=== PATIENT | female | born 1955 | race Caucasian/White ===

== ENCOUNTER 2017-09-25 11:10 | Emergency (ER) | payer SELFPAY ==
[~2017-09-25] VITALS: Ht 154.9 cm; Wt 76.6 kg
[2017-09-25 11:15] VITALS: Ht 154.9 cm; Wt 76.6 kg
[2017-09-25] MEDS ORDERED: METHYLPREDNISOLONE 125 MG INJ IV ONE (13:30)
[2017-09-25] MEDS ORDERED: SOD CHLORIDE 0.9% 1,000 ML IV ONE (13:30)
[2017-09-25] MEDS ORDERED: DIPHENHYDRAMINE 50 MG INJ IV ONE (13:30)
[2017-09-25] MEDS ORDERED: FAMOTIDINE 20 MG INJ IV ONE (13:30)
[2017-09-25] MEDS ORDERED: MED4DP PO (14:17)
[2017-09-25] MEDS ORDERED: BEN25 PO (14:17)
--- NOTE | 2017-09-25 14:40 | ERD ---
ER Documentation Chief Complaint Chief Complaint RASH AND ITCHING AROUND EYES X 4 DAYS HPI This is a 61-year-old female presents to the ER with itchy eyes and redness around her eyes after she got eyeliner tattooed on them 4 days ago. Patient denies any eye discharge, she denies any eye pain. She denies any vision loss or vision changes. Patient denies any fevers or chills. Patient denies any tongue swelling, lip swelling, dysphasia, difficulty in breathing. she does not Have any rashes anywhere else in her body. ROS 12 point review of systems was done, all negative except per HPI. Medications Home Meds Active Scripts Diphenhydramine Hcl* (Benadryl*) 25 Mg Cap, 25 MG PO Q6, #30 CAP Prov:EZEKIEL TRUJILLO Jovana 09/25/17 Methylprednisolone* (Medrol* DOSE PACK) 4 Mg/Dose-Pack Tab.ds.pk, 4 MG PO . DIRECTED for 6 Days, PACKET Prov:EZEKIEL TRUJILLO Jovana 09/25/17 PMhx/Soc Medical and Surgical Hx: pt denies Medical Hx, pt denies Surgical Hx Hx Alcohol Use: No Hx Substance Use: No Hx Tobacco Use: No Physical Exam Vitals Vital Signs Date Time Temp Pulse Resp B/P Pulse Ox O2 Delivery O2 Flow Rate FiO2 09/25/17 11:15 98.1 72 18 159/70 100 Physical Exam GENERAL: The patient is well developed and appropriate for usual state of health , in no apparent distress. HEENT: Atraumatic. Conjunctivae are pink. Pupils equal, round, and reactive to light. Extraocular muscles are grossly intact. patient has redness around eyes on eyelids with flaky skin. The oropharynx is clear with no erythema or exudates. no lip, tongue swelling. CHEST: Clear to auscultation bilaterally. There are no rales, wheezes or rhonchi. HEART: Regular rate and rhythm. No murmurs, clicks, rubs or gallops. NEURO: Alert and oriented. SKIN: There is no apparent rash or petechia. The skin is warm and dry. Result Diagram: 09/25/17 1324 09/25/17 1324 Results 24 hrs Laboratory Tests Test 09/25/17 13:24 White Blood Count 4.310^3/ul Red Blood Count 4.3310^6/ul Hemoglobin 12.4g/dl Hematocrit 38.6% Mean Corpuscular Volume 89.1fl Mean Corpuscular Hemoglobin 28.6pg Mean Corpuscular Hemoglobin Concent 32.1g/dl Red Cell Distribution Width 13.9% Platelet Count 67478^3/UL Mean Platelet Volume 9.9fl Neutrophils % 46.2% Lymphocytes % 43.5% Monocytes % 6.6% Eosinophils % 2.8% Basophils % 0.9% Nucleated Red Blood Cells % 0.0/100WBC Neutrophils # 2.010^3/ul Lymphocytes # 1.910^3/ul Monocytes # 0.310^3/ul Eosinophils # 0.110^3/ul Basophils # 0.010^3/ul Nucleated Red Blood Cells # 0.010^3/ul Sodium Level 143mmol/L Potassium Level 3.5mmol/L Chloride Level 103mmol/L Carbon Dioxide Level 30mmol/L Anion Gap 14 Blood Urea Nitrogen 9mg/dl Creatinine 0.54mg/dl Glucose Level 91mg/dl Calcium Level 9.3mg/dl Total Bilirubin 0.4mg/dl Direct Bilirubin 0.00mg/dl Indirect Bilirubin 0.4mg/dl Aspartate Amino Transf (AST/SGOT) 21IU/L Alanine Aminotransferase (ALT/SGPT) 29IU/L Alkaline Phosphatase 62IU/L Total Protein 7.6g/dl Albumin 4.6g/dl Globulin 3.00g/dl Albumin/Globulin Ratio 1.53 Current Medications Medications (Trade) Dose Ordered Sig/Belkis Route PRN Reason Start Time Stop Time Status Last Admin Dose Admin Methylprednisolone Sodium Succinate (Solu-Medrol) 80 mg ONCE ONCE IV 09/25/17 13:30 09/25/17 13:31 DC 09/25/17 13:34 Diphenhydramine HCl (Benadryl) 25 mg ONCE ONCE IV 09/25/17 13:30 09/25/17 13:31 DC 09/25/17 13:34 Famotidine 20 mg 20 mg ONCE ONCE IV 09/25/17 13:30 09/25/17 13:31 DC 09/25/17 13:34 Sodium Chloride (NS) 1,000 ml @ 1,000 mls/hr Q1H ONCE IV 09/25/17 13:30 09/25/17 14:29 DC 09/25/17 13:34 Procedures/MDM Differential Diagnosis: dermatitis, allergic urticaria, viral exanthem, insect bite, fungal infectio ,viral exanthem, hand foot mouth disease, , impetigo, cellulitis, abscess, franklin erin syndrome, meningocemia, necrotizing fasciitis, myositis. Clinical suspcicion for necrotizing fasciitis or myositis is low. There are no skip leasions or pain away from the site of the rash. Clinical suspicion for franklin erin syndrome is low. There is not history new medication use or mucosal involvement. She appears to have an allergic reaction versus contact dermatitis from tattoo. This does not appear to be severe allergic reaction, patient does not have any tongue swelling, lip swelling. She is not in any respiratory distress. Suspicion for bacterial infection is low. Patient felt significantly better after treatment in the ER. She will be sent home with Medrol Dosepak and Benadryl. Patient is to follow- up with her primary care doctor within 1-2 days or return to ER sooner if symptoms worsen. My medical decision making was shared with the patient she understands and agrees with plan. Departure Diagnosis: Primary Impression: Rash Condition: Stable Patient Instructions: Self-Care for Skin Rashes Additional Instructions: Call your primary care doctor TOMORROW for an appointment during the next 1-2 days.See the doctor sooner or return here if your condition worsens before your appointment time. EZEKIEL TRUJILLO Sep 25, 2017 14:40
== END 2017-09-25 14:36 | disposition home or self-care (01) ==
LOC: FTE 11:10
DX: R21 Rash and other nonspecific skin eruption (principal)
CPT/HCPCS: 36415; 80053; 85025; 96361; 96374; 96375; 99284; J1200; J2930; J7030